=== PATIENT | female | born 1950 | race African-American/Black ===

== ENCOUNTER 2021-04-10 16:06 | Observation (INO) ==
[2021-04-10 16:50] LABS: Basophils % 0.4 % (0.0-0.8); Eosinophils # 0.2 10*3/uL (0.0-0.87); Eosinophils % 4.2 % (0.00-10.9); Hematocrit 44.7 VOL% (35.7-47.0); Immature Granulocytes % 0.2 %; Immature Granulocytes Absolute 0.01 #; Lymphocytes # 1.5 10*3/uL (1.4-4.0); Lymphocytes % 33.6 % (21.3-54.2); Mean Corpuscular HGB Conc 31.3 GM/DL (32-36); Mean Corpuscular Volume 87.3 FL (87-102); Mean Platelet Volume 12.1 FL (9.6-12.0); Monocytes % 14.5 % (1.7-12.7); Neutrophils % 47.1 % (38.7-73.9); Platelet Count 187 T/CUMM (130-400); Red Blood Count 5.12 MC/CUMM (3.8-5.5); Red Cell Distribution Width 15.8 % (9.3-17.3); White Blood Count 4.6 T/CUMM (4-12)
[2021-04-10 17:21] LABS: Albumin 3.6 G/DL (3.4-5.0); Calcium 9.4 MG/DL (8.5-10.1); Osmolality,Calculated 281.4 MOS/KG (273-304); Potassium 4.3 MMOL/L (3.5-5.1); Total Protein 7.2 G/DL (6.4-8.2)
[2021-04-10] MEDS ORDERED: GLUCAGON 1 MG VIAL IM PRN (18:36)
[2021-04-10] MEDS ORDERED: DOCUSATE SODIUM 100 MG CAPSULE PO PRN (18:36)
[2021-04-10] MEDS ORDERED: ONDANSETRON 4 MG/2 ML VIAL IV PRN (18:36)
[2021-04-10] MEDS ORDERED: ALUMINUM/MAGNES/SIMETH MAX STR 30 ML UDCUP PO PRN (18:36)
[2021-04-10] MEDS ORDERED: ZALEPLON 5 MG CAPSULE PO PRN (18:36)
[2021-04-10] MEDS ORDERED: DEXTROSE 50% 25 GM/50 ML VIAL IV PRN (18:36)
[2021-04-10] MEDS: INSULIN REGULAR 100 UNIT/ML SUBCUT SCH (20:47)
[2021-04-10] MEDS: ENOXAPARIN 40 MG/0.4 ML SYRINGE SUBCUT SCH (22:10)
[2021-04-11 06:19] LABS: Calcium 9.6 MG/DL (8.5-10.1); Osmolality,Calculated 284.1 MOS/KG (273-304); Potassium 4.1 MMOL/L (3.5-5.1); Thyroid Stimulating Hormone 2.58 uIU/ml (0.358-3.74)
[2021-04-11] MEDS: INSULIN REGULAR 100 UNIT/ML SUBCUT SCH ×4 (08:09→21:00)
[2021-04-11] MEDS ORDERED: DAPAGLIFLOZIN 10 MG PO SCH (09:00)
[2021-04-11] MEDS ORDERED: [UNRECOGNIZED DRUG - REMARK] SUBCUT SCH (09:00)
[2021-04-11] MEDS: PANTOPRAZOLE 40 MG TABLET PO SCH (09:48)
[2021-04-11] MEDS: GABAPENTIN 100 MG CAPSULE PO SCH ×2 (09:48→21:07)
[2021-04-11] MEDS: SPIRONOLACTONE 25 MG TABLET PO SCH (09:48)
[2021-04-11] MEDS: POTASSIUM CHLORIDE 10 MEQ TABLET PO SCH (09:48)
[2021-04-11] MEDS: LATANOPROST 0.005% OPH SOLN 2.5 ML BOTTLE BOTH EYES SCH ×2 (09:49→21:07)
[2021-04-11] MEDS: SIMETHICONE CHEW 80 MG TABLET PO SCH ×2 (09:57→11:18)
[2021-04-11] MEDS ORDERED: ceFAZolin 1,000 MG VIAL IRRIG ONE (10:17)
[2021-04-11] MEDS ORDERED: SODIUM CHLORIDE 0.9% 1,000 ML IV SCH (10:30)
[2021-04-11] MEDS ORDERED: TISSUE ADHESIVE 1 EACH APPLICATOR TOP ONE ×2 (13:17→14:30)
[2021-04-11] MEDS ORDERED: ceFAZolin 1,000 MG VIAL ONE (13:17)
[2021-04-11] MEDS ORDERED: LIDOCAINE 1%/EPI INJ 20 ML VIAL ONE (13:17)
[2021-04-11] MEDS ORDERED: diphenhydrAMINE CAP 25 MG CAPSULE PO ONE (13:30)
[2021-04-11] MEDS ORDERED: DIAZEPAM 5 MG TABLET PO ONE (13:30)
[2021-04-11] MEDS ORDERED: HYDROmorphone 2 MG/1 ML VIAL ONE (13:43)
[2021-04-11] MEDS ORDERED: MIDAZOLAM 2 MG/2 ML VIAL ONE (13:43)
[2021-04-11] MEDS ORDERED: ATORVASTATIN 20 MG TABLET PO SCH (21:00)
[2021-04-11] MEDS ORDERED: CETIRIZINE 10 MG TABLET PO SCH (21:00)
[2021-04-11] MEDS ORDERED: FLUTICASONE 50 MCG NASAL SPRAY 16 GM BOTTLE BOTH NARES SCH (21:00)
[2021-04-11] MEDS: ACETAMINOPHEN 325 MG TABLET PO PRN (21:07)
[2021-04-11] MEDS: ENOXAPARIN 40 MG/0.4 ML SYRINGE SUBCUT SCH (23:52)
[2021-04-12 06:03] LABS: Basophils % 0.5 % (0.0-0.8); Eosinophils # 0.2 10*3/uL (0.0-0.87); Eosinophils % 3.5 % (0.00-10.9); Hemoglobin 13.7 GM/DL (12.0-16.0); Immature Granulocytes % 0.2 %; Immature Granulocytes Absolute 0.01 #; Lymphocytes # 1.1 10*3/uL (1.4-4.0); Lymphocytes % 25.8 % (21.3-54.2); Mean Corpuscular HGB Conc 31.9 GM/DL (32-36); Mean Corpuscular Volume 86.5 FL (87-102); Mean Platelet Volume 12.5 FL (9.6-12.0); Monocytes % 11.3 % (1.7-12.7); Neutrophils % 58.7 % (38.7-73.9); Platelet Count 180 T/CUMM (130-400); Red Blood Count 4.97 MC/CUMM (3.8-5.5); Red Cell Distribution Width 15.9 % (9.3-17.3); White Blood Count 4.3 T/CUMM (4-12)
[2021-04-12 06:22] LABS: Calcium 9.3 MG/DL (8.5-10.1); Osmolality,Calculated 278.5 MOS/KG (273-304); Potassium 4.1 MMOL/L (3.5-5.1)
[2021-04-12] MEDS: INSULIN REGULAR 100 UNIT/ML SUBCUT SCH ×2 (08:46→12:01)
[2021-04-12] MEDS ORDERED: ASPIRIN EC 81 MG TABLET PO SCH (09:00)
[2021-04-12] MEDS ORDERED: METOPROLOL SUCCINATE XL 25 MG TABLET PO SCH (09:00)
[2021-04-12] MEDS: LATANOPROST 0.005% OPH SOLN 2.5 ML BOTTLE BOTH EYES SCH (09:01)
[2021-04-12] MEDS: PANTOPRAZOLE 40 MG TABLET PO SCH (09:02)
[2021-04-12] MEDS: GABAPENTIN 100 MG CAPSULE PO SCH (09:02)
[2021-04-12] MEDS: SPIRONOLACTONE 25 MG TABLET PO SCH (09:02)
[2021-04-12] MEDS: POTASSIUM CHLORIDE 10 MEQ TABLET PO SCH (09:03)
[2021-04-12] MEDS: SIMETHICONE CHEW 80 MG TABLET PO SCH (09:10)
[2021-04-12] MEDS: ACETAMINOPHEN 325 MG TABLET PO PRN (11:31)
[2021-04-12 11:59] VITALS: BP 149/85
== END 2021-04-12 16:22 | disposition home or self-care (01) ==
LOC: SUATTDRO → EDBD → EDUNIT# → N.EDINP 16:06 → N.ED 16:06 → N.TELEN 19:51
PROVIDERS: ADMIT Internal Medicine Geriatric Medicine; ATTEND Internal Medicine Cardiovascular Disease

== ENCOUNTER 2021-05-14 20:07 | Observation (INO) ==
[2021-05-14 20:31] LABS: Basophils % 0.6 % (0.0-0.8); Eosinophils # 0.5 10*3/uL (0.0-0.87); Eosinophils % 8.6 % (0.00-10.9); Hematocrit 41.8 VOL% (35.7-47.0); Hemoglobin 13.6 GM/DL (12.0-16.0); Immature Granulocytes % 0.4 %; Immature Granulocytes Absolute 0.02 #; Lymphocytes # 1.7 10*3/uL (1.4-4.0); Lymphocytes % 31.9 % (21.3-54.2); Mean Corpuscular HGB Conc 32.5 GM/DL (32-36); Mean Platelet Volume 12.4 FL (9.6-12.0); Monocytes % 13.6 % (1.7-12.7); Neutrophils % 44.9 % (38.7-73.9); Platelet Count 151 T/CUMM (130-400); Red Blood Count 4.92 MC/CUMM (3.8-5.5); Red Cell Distribution Width 15.5 % (9.3-17.3); White Blood Count 5.2 T/CUMM (4-12)
[2021-05-14 20:50] LABS: Calcium 9.2 MG/DL (8.5-10.1); Osmolality,Calculated 283.5 MOS/KG (273-304); Potassium 4.1 MMOL/L (3.5-5.1)
[2021-05-14 21:22] LABS: Alanine Aminotransferase 46 U/L (13-56); Albumin 3.6 G/DL (3.4-5.0); Alkaline Phosphatase 161 U/L (45-117); Aspartate Amino Transferase 38 U/L (0-37); Bilirubin,Total < 0.39 MG/DL (0.2-1.0); Blood Urea Nitrogen 22 MG/DL (7-18); Calcium 9.1 MG/DL (8.5-10.1); Carbon Dioxide 25 MMOL/L (21-32); Estimated Glom Filtration Rate 64 ML/MIN; Glucose 173 MG/DL (74-106); Osmolality,Calculated 285.4 MOS/KG (273-304); Potassium 4.2 MMOL/L (3.5-5.1); Sodium 140 MMOL/L (136-145)
[2021-05-15] MEDS ORDERED: GLUCAGON 1 MG VIAL IM PRN ×2 (00:21→08:49)
[2021-05-15] MEDS ORDERED: DEXTROSE 50% 25 GM/50 ML VIAL IV PRN ×2 (00:21→08:49)
[2021-05-15] MEDS ORDERED: ONDANSETRON 4 MG/2 ML VIAL IV PRN (00:22)
[2021-05-15] MEDS ORDERED: DOCUSATE SODIUM 100 MG CAPSULE PO PRN (00:22)
[2021-05-15] MEDS ORDERED: ACETAMINOPHEN 325 MG TABLET PO PRN (00:22)
[2021-05-15] MEDS ORDERED: hydrALAZINE 20 MG/1 ML VIAL IV PRN (00:22)
[2021-05-15] MEDS ORDERED: MORPHINE 4 MG/1 ML VIAL IV PRN (00:22)
[2021-05-15] MEDS ORDERED: SODIUM CHLORIDE 0.9% 500 ML IV STA (00:31)
[2021-05-15] MEDS ORDERED: NITROGLYCERIN SL 0.4 MG TABLET SL PRN (00:40)
[2021-05-15] MEDS ORDERED: ENOXAPARIN 100 MG/ML SYRINGE SUBCUT SCH (01:00)
[2021-05-15 04:15] LABS: Basophils % 0.4 % (0.0-0.8); Eosinophils # 0.5 10*3/uL (0.0-0.87); Eosinophils % 9.6 % (0.00-10.9); Hematocrit 39.4 VOL% (35.7-47.0); Hemoglobin 12.4 GM/DL (12.0-16.0); Immature Granulocytes % 0.2 %; Immature Granulocytes Absolute 0.01 #; Lymphocytes # 1.4 10*3/uL (1.4-4.0); Lymphocytes % 28.7 % (21.3-54.2); Mean Corpuscular HGB Conc 31.5 GM/DL (32-36); Monocytes % 12.1 % (1.7-12.7); Platelet Count 157 T/CUMM (130-400); Red Blood Count 4.53 MC/CUMM (3.8-5.5); Red Cell Distribution Width 15.5 % (9.3-17.3); White Blood Count 4.8 T/CUMM (4-12)
[2021-05-15 04:51] LABS: Calcium 8.7 MG/DL (8.5-10.1); Osmolality,Calculated 285.1 MOS/KG (273-304); Potassium 4.3 MMOL/L (3.5-5.1); Risk Ratio 1.81; VLDL Cholesterol 9.4 MG/DL
[2021-05-15] MEDS: INSULIN LISPRO 100 UNIT/ML SUBCUT SCH ×2 (08:23→11:40)
[2021-05-15] MEDS ORDERED: DAPAGLIFLOZIN 10 MG PO SCH (09:00)
[2021-05-15] MEDS ORDERED: ASPIRIN EC 81 MG TABLET PO SCH (09:00)
[2021-05-15] MEDS ORDERED: METOPROLOL SUCCINATE XL 25 MG TABLET PO SCH (09:00)
[2021-05-15] MEDS ORDERED: SPIRONOLACTONE 25 MG TABLET PO SCH (09:00)
[2021-05-15] MEDS: KETOROLAC 30 MG/1 ML VIAL IV ONE ×2 (09:06→10:10)
[2021-05-15 13:14] VITALS: BP 161/80
[2021-05-15] MEDS ORDERED: ATORVASTATIN 20 MG TABLET PO SCH (21:00)
== END 2021-05-15 12:13 | disposition home or self-care (01) ==
LOC: EDBD → EDUNIT# → N.EDINP 20:07 → N.ED 20:07 → N.CC 05-15 04:13
PROVIDERS: ADMIT Internal Medicine; ATTEND Internal Medicine